=== PATIENT | female | born 1990 | race Hispanic/Latino ===

== ENCOUNTER 2022-09-29 15:20 | Emergency (ER) | payer OTHER, SELFPAY ==
[2022-09-29] MEDS ORDERED: Ipratropium/Albuterol 3 ML NEB ONE (16:15)
[2022-09-29] MEDS ORDERED: predniSONE 20 MG TAB ONE (16:28)
== END 2022-09-29 16:30 | disposition home or self-care (01) ==
LOC: CSHERS 15:20
DX: J11.1 Influenza due to unidentified influenza virus with other respiratory manifestations (principal); H66.90 Otitis media, unspecified, unspecified ear; E03.9 Hypothyroidism, unspecified; F17.210 Nicotine dependence, cigarettes, uncomplicated
CPT/HCPCS: 71045; 94640; 94760; J7512; J7620